=== PATIENT | female | born 1955 | race Caucasian/White ===

== ENCOUNTER 2024-01-09 09:35 | Day surgery (SDC) | payer MEDICARE, OTHER ==
[~2024-01-09] VITALS: Ht 165.1 cm; Wt 94.8 kg
[~2024-01-09 09:35] MED LIST: ALBU8.5H INH; ALLO300T2 PO; ATIV1TAB10 PO; BRIM5DRO15; ESTR3TA PO; HUMI40IN2; MIDAZOLAM INJ 2MG/2ML VIAL As Ordered ONE; MONT10TA97 PO; OMEP-173 PO; PHENYLEPHRINE 10% OPHTH SOL 5ML OD PRN; POTA-141 PO; REST0.05; SIMV20TA22 PO; SYNT75TA PO; TIMO0.5S20; TORS100T PO; XELP0.00; fentaNYL 100 MCG/2 ML INJECTION As Ordered ONE
[2024-01-09] MEDS: OFLOXACIN 0.3 % (OCUFLOX) OPTH SOL 5ML OD ONE (09:50)
[2024-01-09] MEDS: ATROPINE SULFATE 1% OPHTH SOLN 2ML BTL OD SCH (10:01)
[2024-01-09] MEDS: LIDOCAINE 3.5 % 1ML OPHTH TOPICAL GEL OU ONE (10:01)
[2024-01-09] MEDS: PHENYLEPHRINE 2.5% OPHTH SOL 2ML OD SCH (10:02)
[2024-01-09] MEDS: TROPICAMIDE 1% OPHTH SOLN 15ML OD SCH (10:02)
[2024-01-09] MEDS: LIDOCAINE 1% SDV 5ML VIAL As Ordered ONE (10:49)
[2024-01-09] MEDS: BSS IRRIG/VANCO(10MG)/TOBRA(5MG)/EPINEPH(1:1000-0.5CC)500ML BAG-ORONLY As Ordered ONE (10:49)
[2024-01-09] MEDS: CEFUROXIME 1MG/0.1ML INTRACAMERAL INJ As Ordered ONE (10:49)
[2024-01-09 11:10] VITALS: BP 166/74; TEMP 97.1; O2SAT 100
== END 2024-01-09 11:29 | disposition home or self-care (01) ==
LOC: M SDC 09:35
PROVIDERS: ATTEND Ophthalmology
DX: H25.11 Age-related nuclear cataract, right eye (principal); H40.811 Glaucoma with increased episcleral venous pressure, right eye; I12.9 Hypertensive chronic kidney disease with stage 1 through stage 4 chronic kidney disease, or unspecified chronic kidney disease; N18.30 Chronic kidney disease, stage 3 unspecified; E78.5 Hyperlipidemia, unspecified; E03.9 Hypothyroidism, unspecified; M10.9 Gout, unspecified; K57.92 Diverticulitis of intestine, part unspecified, without perforation or abscess without bleeding; K21.9 Gastro-esophageal reflux disease without esophagitis; M79.7 Fibromyalgia; M81.0 Age-related osteoporosis without current pathological fracture; F41.9 Anxiety disorder, unspecified; Z79.51 Long term (current) use of inhaled steroids; Z79.899 Other long term (current) drug therapy; Z88.8 Allergy status to other drugs, medicaments and biological substances; Z88.2 Allergy status to sulfonamides; Z88.5 Allergy status to narcotic agent; Z91.040 Latex allergy status
CPT/HCPCS: 66989; C1783; J0697; J2250; J3010; V2632

== ENCOUNTER 2024-01-23 08:44 | Day surgery (SDC) | payer MEDICARE ==
[~2024-01-23] VITALS: Ht 165.1 cm; Wt 89.8 kg
[2024-01-23] MEDS: OFLOXACIN 0.3 % (OCUFLOX) OPTH SOL 5ML OS ONE (08:30)
[~2024-01-23 08:44] MED LIST changes: -PHENYLEPHRINE 10% OPHTH SOL 5ML OD PRN; +PHENYLEPHRINE 10% OPHTH SOL 5ML OS PRN
[2024-01-23] MEDS: LIDOCAINE 3.5 % 1ML OPHTH TOPICAL GEL OU ONE (09:40)
[2024-01-23] MEDS: TROPICAMIDE 1% OPHTH SOLN 15ML OS SCH (09:49)
[2024-01-23] MEDS: ATROPINE SULFATE 1% OPHTH SOLN 2ML BTL OS SCH (09:49)
[2024-01-23] MEDS: PHENYLEPHRINE 2.5% OPHTH SOL 2ML OS SCH (09:49)
[2024-01-23] MEDS: LIDOCAINE 1% SDV 5ML VIAL As Ordered ONE (10:38)
[2024-01-23] MEDS: BSS IRRIG/VANCO(10MG)/TOBRA(5MG)/EPINEPH(1:1000-0.5CC)500ML BAG-ORONLY As Ordered ONE (10:39)
[2024-01-23] MEDS: CEFUROXIME 1MG/0.1ML INTRACAMERAL INJ As Ordered ONE (10:39)
[2024-01-23] MEDS: DUOVISC (0.50ML VISCOAT/0.85ML PROVISC) OPHTH KIT As Ordered ONE (10:39)
[2024-01-23 10:58] VITALS: BP 157/90; TEMP 97.2; O2SAT 97
== END 2024-01-23 11:14 | disposition home or self-care (01) ==
LOC: M SDC 08:44
PROVIDERS: ATTEND Ophthalmology
DX: H25.12 Age-related nuclear cataract, left eye (principal); H40.812 Glaucoma with increased episcleral venous pressure, left eye; J45.20 Mild intermittent asthma, uncomplicated; I12.9 Hypertensive chronic kidney disease with stage 1 through stage 4 chronic kidney disease, or unspecified chronic kidney disease; E11.22 Type 2 diabetes mellitus with diabetic chronic kidney disease; N18.9 Chronic kidney disease, unspecified; E03.9 Hypothyroidism, unspecified; K21.9 Gastro-esophageal reflux disease without esophagitis; D50.0 Iron deficiency anemia secondary to blood loss (chronic); Z88.2 Allergy status to sulfonamides; Z88.5 Allergy status to narcotic agent; Z91.018 Allergy to other foods; Z91.030 Bee allergy status; Z91.040 Latex allergy status; Z79.51 Long term (current) use of inhaled steroids; Z79.899 Other long term (current) drug therapy
CPT/HCPCS: 66988; J0697; J2250; J3010; V2632